=== PATIENT | male | born 1995 | race Caucasian/White ===

== ENCOUNTER → 2016-12-11 | Outpatient (CLI) | payer OTHER ==
--- NOTE | 2016-12-12 10:16 | CR ---
EXAMINATION: Right forearm HISTORY: Presence of bone implants COMPARISON: 10/28/2016 TECHNIQUE: 2 views FINDINGS/IMPRESSION: There is screw and plate fixation of healing distal radius and ulna fractures i dentified. Overall position and alignment appear unchanged.
== END ==
LOC: MW.CHORTHO 12-09 07:48
PROVIDERS: ATTEND Orthopaedic Surgery
DX: S52.90XA Unspecified fracture of unspecified forearm, initial encounter for closed fracture (principal); S52.209A Unspecified fracture of shaft of unspecified ulna, initial encounter for closed fracture; Z96.7 Presence of other bone and tendon implants; Z87.81 Personal history of (healed) traumatic fracture
CPT/HCPCS: 73090-26-RT; 73090-RT

== ENCOUNTER 2019-11-26 01:41 | Emergency (ER) | payer SELFPAY ==
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
== END 2019-11-26 02:14 ==
LOC: MW.ED 01:41
CPT/HCPCS: 99282; 99283

== ENCOUNTER 2020-08-18 01:01 | Emergency (ER) | payer SELFPAY ==
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
[2020-08-18 01:29] LABS: BLOOD UREA NITROGEN,BUN 13 mg/dL (7.0-18.0); CARBON DIOXIDE,CO2 29.3 mmol/L (21.0-32.0); CHLORIDE,CL 105 mmol/L (98-107); GLUCOSE RANDOM 103 mg/dL (74-106); POTASSIUM,K 3.5 mmol/L (3.5-5.1); SODIUM,NA 142 mmol/L (136-148)
[2020-08-18 01:38] VITALS: BP 161/58; PULSE 108
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
--- NOTE | 2020-08-18 02:00 | CR ---
INDICATION: Trauma TECHNIQUE: Three views right wrist COMPARISON: None FINDINGS: Bones: Multipart nondisplaced fracture distal radius extending to the articular surface. Plate and screw fixation of the distal radius and ulnar shafts. Joint spaces: Unremarkable. Soft tissues: Volar soft tissue edema anterior to the wrist. IMPRESSION: Multipart nondisplaced distal radius fracture extending to the articular surface. Dictated by Karel Aguirre MD @ Aug 18 2020 1:59AM Signed by Dr. Karel Aguirre @ Aug 18 2020 1:59AM
--- NOTE | 2020-08-18 02:00 | CR ---
INDICATION: Trauma TECHNIQUE: AP pelvis one view COMPARISON: None FINDINGS: Bones: Alignment is normal. No fractures or bone lesions. Joint spaces: Unremarkable. Soft tissues: Unremarkable. IMPRESSION: Negative. Dictated by Karel Aguirre MD @ Aug 18 2020 1:57AM Signed by Dr. Karel Aguirre @ Aug 18 2020 1:57AM
--- NOTE | 2020-08-18 02:04 | CT ---
INDICATION: Trauma TECHNIQUE: CT cervical spine without contrast. COMPARISON: None FINDINGS: Vertebral alignment: Alignment is normal. Vertebrae: There are no fractures or suspicious bony lesions. Discs and facet joints: Disc spaces and facets are within normal limits. Extraspinal findings: Prevertebral soft tissues, visualized airway, and visualized lungs are unremarkable. IMPRESSION: Unremarkable cervical spine CT. Please note that all CT scans at this facility use dose modulation, iterative reconstruction, and/or weight-based dosing when appropriate to reduce radiation dose to as low as reasonably achievable. Dictated by Karel Aguirre MD @ Aug 18 2020 2:03AM Signed by Dr. Karel Aguirre @ Aug 18 2020 2:03AM
--- NOTE | 2020-08-18 02:06 | CT ---
INDICATION: Trauma TECHNIQUE: CT head without contrast. COMPARISON: None FINDINGS: CSF spaces: Within normal limits for age. Brain parenchyma: The matthew-white differentiation is normal. No sign of mass, hemorrhage, or midline shift. Skull base and calvarium: The visualized paranasal sinuses and mastoid air cells demonstrate no acute or significant findings. The visualized orbits are grossly unremarkable. No skull fractures. The frontal scalp lacerations. IMPRESSION: Left frontal scalp laceration. No evidence of acute intracranial trauma. Please note that all CT scans at this facility use dose modulation, iterative reconstruction, and/or weight-based dosing when appropriate to reduce radiation dose to as low as reasonably achievable. Dictated by Karel Aguirre MD @ Aug 18 2020 2:03AM Signed by Dr. Karel Aguirre @ Aug 18 2020 2:04AM
== END 2020-08-18 02:47 | disposition home or self-care (01) ==
LOC: MW.ED 01:01
DX: S52.571A Other intraarticular fracture of lower end of right radius, initial encounter for closed fracture (principal); S01.01XA Laceration without foreign body of scalp, initial encounter; S40.811A Abrasion of right upper arm, initial encounter; S70.211A Abrasion, right hip, initial encounter; S40.212A Abrasion of left shoulder, initial encounter; W23.0XXA Caught, crushed, jammed, or pinched between moving objects, initial encounter
CPT/HCPCS: 12001; 29125; 36415; 70450; 70450-26; 71045; 71045-26; 72125; 72125-26; 72170; 72170-26; 73110-26-RT; 73110-RT; 80053; 85025; 99284-25; 99285

== ENCOUNTER 2022-05-17 13:35 | Emergency (ER) | payer SELFPAY | END 2022-05-17 15:09 | disposition home or self-care (01) | LOC: MW.ED 13:35 | DX: T24.231A Burn of second degree of right lower leg, initial encounter (principal); L03.115 Cellulitis of right lower limb; X19.XXXA Contact with other heat and hot substances, initial encounter | CPT/HCPCS: 99283 ==

== ENCOUNTER 2022-05-19 18:11 | Emergency (ER) | payer SELFPAY | END 2022-05-19 20:14 | disposition home or self-care (01) | LOC: MW.ED 18:11 | DX: L03.115 Cellulitis of right lower limb (principal); Z79.899 Other long term (current) drug therapy | CPT/HCPCS: 99283 ==

== ENCOUNTER 2023-01-31 10:49 | Emergency (ER) | payer BC ==
[2023-01-31] MEDS ORDERED: Acetaminophen/HYDROcodone 325-5 MG Tab PO ONE (13:18)
[2023-01-31] MEDS ORDERED: Cephalexin 500 MG Cap PO ONE (13:18)
== END 2023-01-31 13:52 | disposition home or self-care (01) ==
LOC: MW.ED 10:49
DX: T81.49XA Infection following a procedure, other surgical site, initial encounter (principal)
CPT/HCPCS: 73130; 99283; A9270

== ENCOUNTER 2023-02-06 21:25 | Emergency (ER) | payer BC | END 2023-02-06 22:40 | disposition left against medical advice (07) | LOC: MW.ED 21:25 | DX: Z53.21 Procedure and treatment not carried out due to patient leaving prior to being seen by health care provider (principal) ==